=== PATIENT | male | born 1965 | race Two or more races ===

== ENCOUNTER 2020-05-14 06:00 | Day surgery (SDC) | payer OTHER ==
[~2020-05-14 06:00] MED LIST: ZYLOPRIM100 M1 PO
[2020-05-14] MEDS ORDERED: ULTRACET PO (10:02)
[2020-05-14] MEDS ORDERED: SURFAK240 M1 PO (10:03)
[2020-05-14] MEDS ORDERED: CIPRO500 MG PO (10:04)
== END 2020-05-14 12:30 | disposition home or self-care (01) ==
LOC: CIR.AMB 06:00 → EDSEX 06:00 → CIR.AMB 07:00
PROVIDERS: ATTEND Surgery
DX: K40.90 Unilateral inguinal hernia, without obstruction or gangrene, not specified as recurrent (principal); Z20.828 Contact with and (suspected) exposure to other viral communicable diseases